=== PATIENT | female | born 1980 | race Caucasian/White ===

== ENCOUNTER 2020-08-08 09:52 | Emergency (ER) | payer SELFPAY ==
[2020-08-08 10:06] VITALS: TEMP 98.2; BMI 25.0
[2020-08-08] MEDS ORDERED: METOCLOPRAMIDE HCL INJECTION 10 MG/2 ML VIAL IVPB ONE (10:45)
[2020-08-08] MEDS ORDERED: SODIUM CHLORIDE 0.9% 500 ML INFUS.BAG IV ONE (10:45)
[2020-08-08] MEDS ORDERED: METOCLOPRAMIDE HCL INJECTION 10 MG/2 ML VIAL ONE (11:02)
[2020-08-08 13:10] VITALS: PULSE 53
[2020-08-08 13:14] VITALS: BP 104/64
== END 2020-08-08 13:15 | disposition home or self-care (01) ==
LOC: JER 09:52 → JERFT 09:52 → JER 13:15
PROC: 3E033GC Introduction of Other Therapeutic Substance into Peripheral Vein, Percutaneous Approach (ICD-10-PCS; principal; 2020-08-08)
PROC: 3E033GC Introduction of Other Therapeutic Substance into Peripheral Vein, Percutaneous Approach (ICD-10-PCS; 2020-08-08)
DX: G43.809 Other migraine, not intractable, without status migrainosus (principal)
CPT/HCPCS: 99284-25

== ENCOUNTER 2023-01-27 17:32 | Emergency (ER) | payer OTHER ==
[2023-01-27 18:14] VITALS: BP 107/60; PULSE 86; RESP 16; TEMP 98.2; BMI 28.3
[2023-01-27] MEDS ORDERED: KETOROLAC TROMETHAMINE 30 MG/1 ML VIAL IM ONE (19:55)
[2023-01-27] MEDS ORDERED: KETOROLAC TROMETHAMINE 30 MG/1 ML VIAL ONE (20:02)
[2023-01-27] MEDS ORDERED: LIDOCAINE 4% PATCH TP ONE ×2 (21:20→21:45)
[2023-01-27] MEDS ORDERED: METHOCARBAMOL 500 MG TABLET PO ONE (21:46)
[2023-01-27] MEDS ORDERED: METHOCARBAMOL 500 MG TABLET ONE (21:47)
[2023-01-27] MEDS ORDERED: LIDOCAINE PATCH REMOVAL MC SCH (22:00)
== END 2023-01-27 21:52 | disposition home or self-care (01) ==
LOC: JER 17:32 → JERFT 17:32
PROC: 3E0233Z Introduction of Anti-inflammatory into Muscle, Percutaneous Approach (ICD-10-PCS; principal; 2023-01-27)
DX: M54.50 Low back pain, unspecified (principal); M62.830 Muscle spasm of back
CPT/HCPCS: 72100-TC-FY; 99284-25

== ENCOUNTER 2023-07-02 17:20 | Emergency (ER) | payer OTHER ==
[2023-07-02 17:37] VITALS: BMI 29.9
[2023-07-02] MEDS ORDERED: FAMOTIDINE 20 MG/50 ML IVPB 20 MG/50 ML MG IVPB ONE (19:46)
[2023-07-02] MEDS ORDERED: ONDANSETRON 4 MG/2 ML VIAL ONE (19:46)
[2023-07-02 19:54] LABS: BASO % 0.6 % (0-2.0); HEMATOCRIT 40.9 % (32.4-45.2); HEMOGLOBIN 13.5 GM/dL (10.7-15.3); LYMPH % 37.1 % (8-40); MCH 27.5 pg (25.7-33.7); MCHC 33.1 g/dl (32.0-36.0); MEAN CELL VOLUME 83.1 fl (80-96); MEAN PLT VOLUME 7.7 fl (7.5-11.1); NEUT % 53.3 % (42.8-82.8); PLATELET COUNT 265 10^3/uL (134-434); RBC 4.92 M/mm3 (3.60-5.2); RDW 16.9 % (11.6-15.6); WHITE BLOOD COUNT 7.2 K/mm3 (4.0-10.0)
[2023-07-02 20:03] LABS: INR 1.08 (0.83-1.09); PROTHROMBIN TIME (PATIENT) 12.5 SEC (9.7-13.0)
[2023-07-02 20:05] LABS: ACTIVATED PTT 34.8 SECONDS (25.2-36.5)
[2023-07-02 20:13] LABS: POTASSIUM 3.7 mmol/L (3.5-5.1)
[2023-07-02 20:15] LABS: ALBUMIN 4.1 g/dl (3.4-5.0); BLOOD UREA NITROGEN 14.7 mg/dL (7-18); CALCIUM 9.7 mg/dL (8.5-10.1)
[2023-07-02 20:15] LABS: THROAT:GRP A STREP NOT DETECTED (NOTDETECTED)
[2023-07-02 20:18] LABS: CREATININE 0.8 mg/dL (0.55-1.3)
[2023-07-02] MEDS: SODIUM CHLORIDE 0.9% 500 ML INFUS.BAG IV ONE (20:18)
[2023-07-02] MEDS: FAMOTIDINE 20 MG/50 ML IVPB 20 MG/50 ML MG IVPB ONE (20:18)
[2023-07-02] MEDS: ONDANSETRON 4 MG/2 ML VIAL IVPUSH ONE (20:18)
[2023-07-02 20:20] LABS: BILIRUBIN,TOTAL 0.5 mg/dL (0.2-1); TOT PROT 7.8 g/dl (6.4-8.2)
[2023-07-02] MEDS ORDERED: IOHEXOL (OMNIPAQUE PO) 12 MG/ML - 500 ML BOTTLE PO ONE (20:27)
[2023-07-03 00:39] VITALS: BP 103/65; PULSE 62; RESP 19; TEMP 97.9
== END 2023-07-03 01:36 | disposition home or self-care (01) ==
LOC: JER 17:20
PROC: 3E033GC Introduction of Other Therapeutic Substance into Peripheral Vein, Percutaneous Approach (ICD-10-PCS; principal; 2023-07-02)
PROC: 3E033GC Introduction of Other Therapeutic Substance into Peripheral Vein, Percutaneous Approach (ICD-10-PCS; 2023-07-02)
DX: R10.10 Upper abdominal pain, unspecified (principal); R11.2 Nausea with vomiting, unspecified; R68.83 Chills (without fever); Z20.822 Contact with and (suspected) exposure to COVID-19
CPT/HCPCS: 0241U-QW; 36415; 74177-TC; 76705-TC; 80053; 83690; 84703; 85025; 85610; 85730; 86850; 86900; 86901; 87651; 99285-25; Q9967